=== PATIENT | male | born 1995 | race Caucasian/White ===

== ENCOUNTER 2018-02-08 01:25 | Emergency (ER) | payer OTHER ==
[~2018-02-08] VITALS: Ht 170.2 cm; Wt 68.0 kg
[2018-02-08 01:42] VITALS: BP 112/70
--- NOTE | 2018-02-08 02:20 | RADIOLOGY REPORT ---
EXAMINATION: XR HUMERUS, LEFT CLINICAL INFORMATION: Concern for radiopaque foreign body. Needle. COMPARISON: None TECHNIQUE: AP and lateral views of the left humerus. FINDINGS: There are no fractures or dislocations. The humeral head is seated within a well-formed glenoid. Along the lateral aspect of the mid upper arm there is an approximately 6 mm long thin radiopaque foreign body. IMPRESSION: 6 mm thin radiopaque foreign body overlying the left upper arm at the level of the mid humerus.
== END 2018-02-08 03:00 | disposition admitted as inpatient to this hospital (09) ==
LOC: ERH 01:25
DX: S41.142A Puncture wound with foreign body of left upper arm, initial encounter (principal)
CPT/HCPCS: 73060-LT; 99281